=== PATIENT | male | born 1950 | race African-American/Black ===

== ENCOUNTER 2019-08-17 10:18 | Inpatient (IN) | payer OTHER ==
[~2019-08-17] VITALS: Ht 182.9 cm; Wt 80.0 kg
[2019-08-17] MEDS ORDERED: LEVO25TA9 PO (10:48)
[2019-08-17] MEDS ORDERED: SODIUM CHLORIDE 0.9% 2,400 ML IV ONE (11:26)
[2019-08-17] MEDS ORDERED: IOVERSOL 350 MG/ML 100 ML VIAL ONE (11:39)
[2019-08-17 11:40] LABS: HEMATOCRIT 44.4 % (41-53); MEAN CORPUSCULAR HEMOGLOBIN 33.2 pg (26.0-34.0); MEAN CORPUSCULAR HGB CONC 33.8 G/dL (31.0-37.0); MEAN CORPUSCULAR VOLUME 98 fL (80-100); PLATELET COUNT (AUTO) 157 K/uL (150-450); RED BLOOD CELL COUNT(AUTO) 4.52 MIL/uL (4.50-5.90); RED CELL DISTRIBUTION WIDTH 13.3 % (11.5-14.5)
[2019-08-17 11:46] LABS: GLUCOSE,POINT OF CARE 107 MG/DL (70-110)
[2019-08-17 11:59] LABS: CALCIUM, TOTAL 7.8 mg/dL (8.8-10.5); CREATININE 1.79 mg/dL (0.60-1.30); POTASSIUM 4.8 mmol/L (3.5-5.1)
[2019-08-17 12:15] LABS: ALBUMIN 2.6 g/dL (3.4-5.0); BILIRUBIN,TOTAL 0.3 mg/dL (0.1-1.0); FREE T4 (FREE THYROXINE) 1.02 ng/dL (0.76-1.46); THYROID STIMULATING HORMONE 0.8 uIU/mL (0.36-3.74); TOTAL PROTEIN, SERUM 6.6 g/dL (6.4-8.2)
[2019-08-17 12:29] LABS: LACTIC ACID 3.3 mmol/L (0.4-2.0)
[2019-08-17] MEDS ORDERED: MetroNIDAZOLE 500 MG/NACL 100 ML IV ONE (12:30)
[2019-08-17] MEDS ORDERED: LEVOFLOXACIN 750 MG/D5% WATER 150 ML IV ONE (12:30)
[2019-08-17 12:33] LABS: BAND NEUTROPHILS % (MANUAL) 20 % (0-5); LYMPHOCYTES % (MANUAL) 8 % (22-44); MONOCYTES % (MANUAL) 5 % (2-9); SEGMENTED NEUTROPHILS % 67 % (40-70)
[2019-08-17 12:57] LABS: INFLUENZA TYPE A NEGATIVE FOR TYPE A (NEGATIVE); INFLUENZA TYPE B NEGATIVE FOR TYPE B (NEGATIVE)
[2019-08-17] MEDS ORDERED: VANCOMYCIN HCL 1.5 GM in DEXTROSE 5%-WATER 250 ML IV ONE (13:00)
[2019-08-17] MEDS ORDERED: FAMOTIDINE 10 MG/ML 2 ML VIAL IVP ONE (13:15)
[2019-08-17] MEDS ORDERED: METOCLOPRAMIDE HCL 5 MG/ML 2 ML VIAL IVP ONE (13:15)
[2019-08-17] MEDS ORDERED: SODIUM CHLORIDE 0.9% 1,000 ML IV ONE ×2 (13:30→17:45)
[2019-08-17] MEDS ORDERED: NOREPINEPHRINE 4 MG/D5%-WATER 250 ML IV PRN (14:27)
[2019-08-17] MEDS ORDERED: ACETAMINOPHEN 500 MG TABLET PO ONE (14:30)
[2019-08-17 14:34] LABS: APPEARANCE,URINE CLEAR (CLEAR); GLUCOSE, URINE (UA) NEGATIVE (NEGATIVE); KETONES,URINE TRACE mg/dL (NEGATIVE); LEUKOCYTE ESTERASE ,URINE NEGATIVE (NEGATIVE); NITRATE,URINE NEGATIVE (NEGATIVE); OCCULT BLOOD,URINE NEGATIVE (NEGATIVE)
[2019-08-17 14:40] LABS: BILIRUBIN,URINE PRELIM. POSITIVE (NEGATIVE); PROTEIN,URINE TRACE (NEGATIVE)
[2019-08-17 14:41] LABS: BACTERIA,URINE None Seen /HPF (None Seen); RBC,URINE 0-2 /HPF (0-2); SQUAMOUS EPITHELIAL CELL,UR Moderate /LPF (None Seen); WBC,URINE 0-2 /HPF (0-5)
[2019-08-17] MEDS ORDERED: ACETAMINOPHEN 325 MG TABLET PO PRN (19:00)
[2019-08-17] MEDS ORDERED: BISACODYL 10 MG RECTAL RECTAL SUPPOSITORY PR PRN (19:00)
[2019-08-17] MEDS ORDERED: *CLINICAL-LEVOFLOXACIN IVPB DOSING CLINICAL ONE (19:00)
[2019-08-17] MEDS ORDERED: ASPIRIN 81 MG CHEWABLE TABLET PO SCH (19:00)
[2019-08-17] MEDS: SODIUM CHLORIDE 0.9% 1,000 ML IV SCH ×2 (19:21→22:30)
[2019-08-17 20:37] VITALS: BP_DIAS 55
[2019-08-17] MEDS ORDERED: MetroNIDAZOLE 500 MG/NACL 100 ML IV SCH (21:00)
[2019-08-17] MEDS ORDERED: HEPARIN SODIUM,PORCINE 5,000 UNITS/ML VIAL SQ SCH (21:00)
[2019-08-17] MEDS ORDERED: DOCUSATE SODIUM 100 MG CAPSULE PO SCH (21:00)
[2019-08-17 21:30] VITALS: BP_SYST 96
[2019-08-17] MEDS ORDERED: PHENYLEPHRINE 200 MG/D5%-WATER 250 ML IV PRN (22:21)
[2019-08-17] MEDS ORDERED: VASOPRESSIN 40 UNITS in DEXTROSE 5%-WATER 98 ML IV PRN (23:52)
[2019-08-18] MEDS ORDERED: SODIUM CHLORIDE 0.9% 500 ML IV ONE ×2 (00:02→00:11)
[2019-08-18] MEDS ORDERED: DOPamine HCL 400 MG/D5%-WATER 250 ML IV PRN (00:03)
[2019-08-18] MEDS ORDERED: WATER FOR INJECTION STERILE IV ONE ×2 (00:45→01:00)
[2019-08-18] MEDS ORDERED: ALTEPLASE IV ONE ×2 (00:45→01:00)
[2019-08-18] MEDS ORDERED: EPINEPHrine 1:10,000 [1 MG/10 ML] SYRINGE ONE (01:02)
[2019-08-18] MEDS ORDERED: ATROPINE SULFATE 0.1 MG/ML 10 ML SYRINGE IVP ONE (01:22)
[2019-08-18] MEDS ORDERED: EPINEPHrine 1:10,000 [1 MG/10 ML] SYRINGE IVP ONE ×2 (01:22)
[2019-08-18] MEDS ORDERED: MAGNESIUM SULF/STERILE WATER 4 GM/100 ML IV BAG IV ONE (01:22)
[2019-08-18] MEDS ORDERED: SODIUM BICARBONATE [ADULT] 8.4% 50 MEQ/50 ML SYRINGE IVP ONE ×2 (01:22)
[2019-08-18] MEDS ORDERED: CALCIUM CHLORIDE 100 MG/ML 10 ML SYRINGE IVP ONE ×2 (01:22)
[2019-08-18] MEDS ORDERED: 0.9% SODIUM CHLORIDE 1,000 ML BAG IV ONE (01:22)
[2019-08-18] MEDS ORDERED: DOPamine HCL/D5W 400 MG/250 ML IV BAG IV ONE (01:22)
[2019-08-18 02:38] LABS: GLUCOSE,POINT OF CARE 96 MG/DL (70-110)
[2019-08-18 02:38] LABS: GLUCOSE,POINT OF CARE 130 MG/DL (70-110)
[2019-08-18] MEDS ORDERED: PNEUMOCOCCAL VACCINE POLYVALENT 0.5 ML VIAL [PPSV23] IM ONE (03:45)
[2019-08-18] MEDS ORDERED: INFLUENZA VIRUS VACCINE QVS 2019-20 (3YR+)/PF 60 MCG/0.5 ML SYRINGE IM ONE (03:45)
[2019-08-18] MEDS ORDERED: VANCOMYCIN HCL 1.25 GM in DEXTROSE 5%-WATER 250 ML IV SCH (08:00)
[2019-08-18] MEDS ORDERED: FAMOTIDINE 20 MG TABLET PO SCH (09:00)
[2019-08-19] MEDS ORDERED: LEVOFLOXACIN 750 MG/D5% WATER 150 ML IV SCH (13:00)
== END 2019-08-18 01:23 | disposition expired | DRG 871 ==
LOC: EMS 10:24 → ICU 20:00
PROVIDERS: ADMIT Internal Medicine; ATTEND Internal Medicine
PROC: 5A1935Z Respiratory Ventilation, Less than 24 Consecutive Hours (ICD-10-PCS; principal; 2019-08-17)
PROC: 0BH17EZ Insertion of Endotracheal Airway into Trachea, Via Natural or Artificial Opening (ICD-10-PCS; 2019-08-17)
DX: A41.9 Sepsis, unspecified organism (principal); R65.21 Severe sepsis with septic shock; E87.1 Hypo-osmolality and hyponatremia; N17.9 Acute kidney failure, unspecified; E03.9 Hypothyroidism, unspecified; E86.0 Dehydration; I46.9 Cardiac arrest, cause unspecified; J43.8 Other emphysema; N40.0 Benign prostatic hyperplasia without lower urinary tract symptoms; J47.9 Bronchiectasis, uncomplicated; S09.8XXA Other specified injuries of head, initial encounter; X58.XXXA Exposure to other specified factors, initial encounter; Y93.89 Activity, other specified; Y92.89 Other specified places as the place of occurrence of the external cause; Y99.8 Other external cause status; Z88.0 Allergy status to penicillin
CPT/HCPCS: 70450; 71250; 72192; 74150; 83605; 84439; 84443; 87040; 87081; 87804; 93005; 99291; G0378; J0171; J0461; J1265; J1644; J1956; J2370; J2765; J2997; J3370; J3475; J3490; J7030; J7040; J7060